=== PATIENT | female | born 1985 | race Hispanic/Latino ===

== ENCOUNTER 2018-06-01 00:43 | Emergency (ER) | payer OTHER ==
[~2018-06-01] VITALS: Ht 167.6 cm; Wt 130.6 kg
--- NOTE | 2018-06-01 01:38 | ED DYSPNEA/ASTHMA COMPLAINT ---
History of Present Illness General Chief Complaint: Chest Pain Stated Complaint: CHEST PAIN, HARD TO BREATHE PER PT Source: patient Exam Limitations: no limitations Vital Signs & Intake/Output Vital Signs & Intake/Output Vital Signs Date Time Temp Pulse Resp B/P B/P Pulse O2 O2 Flow FiO2 Mean Ox Delivery Rate 06/01 0255 97.8 90 16 132/72 99 Room Air 06/01 0119 98.1 86 18 139/91 98 Room Air Allergies Coded Allergies: No Known Allergies (06/01/18) Reconcile Medications Amoxicillin/Potassium Clav (Augmentin 875-125 Tablet) 875 MG-125 MG TABLET 1 TAB PO BID BRONCHITIS Benzonatate (Tessalon Perle) 100 MG CAPSULE 1 CAP PO TID PRN COUGH Prednisone 50 MG TABLET 1 TAB PO DAILY BRONCHITIS Triage Note: PT FROM HOME C/O PRODUCTIVE COUGH SINCE 1500. PT STATES THAT LAST WEEK SHE WAS DX WITH A RESP UPPER INFECTION WHICH IS UNKNOWN TO PT, FINISHED THE WEEK OF ANTIBIOTIC AND THEN TOOK MEDICATION FOR A UTI. PT STATES TODAY AROUND 1500 SHE BEGAN WITH A DRY COUGH THEN HAS NOW PROGRESSED TO PRODUCTIVE WITH GREEN FLEM. "MY THROAT HURTS BUT NOT SWOLLEN MORE LIKE IRRITATED FROM COUGHING SO MUCH" PT STATES THE PAIN IS RADIATING DOWN ESOPHAGUS. PTS VSS. Triage Nurses Notes Reviewed? yes : No Patient currently breastfeeds: No HPI: 32-year-old woman presents with 2-3 days of cough productive of green thick sputum. Associated with mild wheeze. She states that she has no headache fever chills chest pain abdominal pain which may swelling. She is otherwise well. Past History Travel History Traveled to [place] past 21 day No Medical History Any Pertinent Medical History? see below for history Neurological: NONE EENT: NONE Cardiovascular: NONE Respiratory: NONE Gastrointestinal: NONE Hepatic: NONE Renal: NONE Musculoskeletal: NONE Psychiatric: NONE Endocrine: NONE Surgical History Surgical History: none Psychosocial History What is your primary language Citizen Of [place] Tobacco Use: Never used Family History Hx Contributory? No Review of Systems Review of Systems Constitutional: Reports: no symptoms. EENTM: Reports: no symptoms. Respiratory: Reports: no symptoms. Cardiovascular: Reports: no symptoms. GI: Reports: no symptoms. Genitourinary: Reports: no symptoms. Musculoskeletal: Reports: no symptoms. Skin: Reports: no symptoms. Neurological/Psychological: Reports: no symptoms. Hematologic/Endocrine: Reports: no symptoms. Immunologic/Allergic: Reports: no symptoms. All Other Systems: Reviewed and Negative Physical Exam Physical Exam Respiratory: normal breath sounds, rhonchi Comments: Review of Systems - except as otherwise noted in HPI Physical Exam Physical Exam General Appearance: well developed/nourished, no apparent distress Head: atraumatic, normal appearance Eyes: Bilateral: normal appearance. Ears, Nose, Throat: normal pharynx, normal ENT inspection Neck: normal inspection, supple, full range of motion Respiratory: Mild rhonchi , chest non-tender, no respiratory distress, quiet respiration, lungs clear Cardiovascular: regular rate/rhythm Gastrointestinal: normal bowel sounds, soft, non-tender, no organomegaly Back: normal inspection, normal range of motion Extremities: normal inspection, normal capillary refill, normal range of motion, no edema Neurologic/Psych: no motor/sensory deficits, awake, alert, oriented x 3 Skin: intact, normal color, warm/dry Core Measures ACS in differential dx? No CVA/TIA Diagnosis No Sepsis Present: No Sepsis Focused Exam Completed? No Progress Differential Diagnosis: asthma, bronchitis, CHF, COPD Plan of Care: Orders Procedure Date/time Status EKG 06/01 0045 Active Laboratory Tests 06/01/18 0102: Total Beta HCG Cancelled, D-Dimer High Sensitivty Cancelled, CBC w Diff Cancelled, WBC Cancelled, RBC Cancelled, Hgb Cancelled, Hct Cancelled, MCV Cancelled, MCH Cancelled, MCHC Cancelled, RDW Cancelled, Plt Count Cancelled, MPV Cancelled Initial ED EKG: none Departure Departure Disposition: HOME OR SELF CARE Condition: Stable Clinical Impression Primary Impression: Bronchitis Referrals: Patient Has No Primary Care Dr (PCP/Family) Departure Forms: Customer Survey General Discharge Information Prescriptions: Current Visit Scripts Prednisone 1 TAB PO DAILY #4 TAB Benzonatate (Tessalon Perle) 1 CAP PO TID PRN COUGH #30 CAP Amoxicillin/Potassium Clav (Augmentin 875-125 Tablet) 1 TAB PO BID #20 TAB Comments Patient declines blood work. Labs are benign. Patient's exam most consistent with bronchitis. I will treat the steroids and antibiotics. Close follow-up was advised Critical Care Note Critical Care Note Critical Care Time: non-applicable
[2018-06-01] MEDS ORDERED: PREDNISONE50 M1 PO (02:38)
[2018-06-01] MEDS ORDERED: TESSALON PERLE100 M1 PO (02:38)
[2018-06-01] MEDS ORDERED: AUGMENTIN 875-1 EACH PO (02:38)
[2018-06-01 02:55] VITALS: BP 132/72
== END 2018-06-01 02:56 ==
LOC: ERH 00:43
DX: J40 Bronchitis, not specified as acute or chronic (principal); R06.2 Wheezing
CPT/HCPCS: 93005; 93010; J3490